=== PATIENT | male | born 1980 | race Hispanic/Latino ===

== ENCOUNTER 2022-04-10 11:07 | Emergency (ER) | payer SELFPAY ==
[2022-04-10 11:14] VITALS: BP 125/71
[2022-04-10] MEDS ORDERED: ASPIRIN 325 MG TAB PO ONE (11:15)
[2022-04-10 12:56] LABS: Basophils % (Auto) 0.5 % (0.0-1.8); Eosinophils # (Auto) 0.1 K/mm3 (0.0-0.4); Eosinophils % (Auto) 1.4 % (0.0-4.3); Hematocrit 43.8 % (35.5-45.6); Hemoglobin 14.9 gm/dl (11.8-15.2); Lymphocytes # (Auto) 1.3 K/mm3 (1.2-5.4); Lymphocytes % (Auto) 15.4 % (13.4-35.0); Mean Corpuscular HGB Conc 34 % (32-34); Mean Corpuscular Volume 86 fl (84-94); Monocytes # (Auto) 0.6 K/mm3 (0.0-0.8); Monocytes % (Auto) 7.5 % (0.0-7.3); Platelet Count 210 K/mm3 (140-440); Red Cell Distribution Width 13.8 % (13.2-15.2)
[2022-04-10 13:22] LABS: Alanine Aminotransferase 51 units/L (7-56); Albumin 4.9 g/dL (3.9-5); BUN/Creatinine Ratio 13; Blood Urea Nitrogen 12 mg/dL (9-20); Calcium 9.6 mg/dL (8.4-10.2); Hemolysis Index 5
--- NOTE | 2022-04-10 13:52 | XRay Report ---
CHEST 2 VIEWS INDICATION: chest pain. COMPARISON: None. FINDINGS: Support devices: None. Heart: Within normal limits. Lungs/Pleura: No acute air space or interstitial disease. No significant pleural effusion. IMPRESSION: No acute findings. Signer Name: Leandro Bo MD Signed: 04/10/2022 1:47 PM Workstation Name: [id number]
--- NOTE | 2022-04-11 10:33 | Electrocardiograph Report ---
[facility] Test Date: 2022-04-10 Test Time: 11:47:20 Pat Name: CONSTANCE BECERRA Department: Room: Gender: M [employer]: MASON : 1980 Requested By: ED DOC Order Number: [id number] Reading MD: Cabrera Frank Measurements Intervals [place] Rate: 73 P: 60 SD: 149 QRS: 37 QRSD: 103 T: 36 QT: 411 QTc: 454 Interpretive Statements Sinus rhythm No previous ECG available for comparison Electronically Signed On 04-11-2022 10:33:39 EDT by Cabrera Frank
== END 2022-04-10 14:32 | disposition left against medical advice (07) ==
LOC: ED 11:07
DX: R07.89 Other chest pain (principal); Z53.21 Procedure and treatment not carried out due to patient leaving prior to being seen by health care provider
CPT/HCPCS: 36415; 71046; 80053; 84484; 85025; 93005